=== PATIENT | male | born 1965 | race Two or more races ===

== ENCOUNTER → 2021-05-16 | Day surgery (SDC) | payer OTHER ==
[~2021-05-16] VITALS: Ht 182.9 cm; Wt 135.0 kg
[~2021-05-16] MED LIST: ATOR40TA59 PO; BUSP15TA PO; CARV12.511 PO; DICY20TA3 PO; FENO145T3 PO; FURO40TA4 PO; GABA300C18 PO; HYDR-2761 PO; IV RINGERS,LACTATED 1000ML 1,000 ML IV SCH; LIDOCAINE 2% PF 5 ML VIAL. ONE; LISI-130 PO; METH-561 PO; PROPOFOL 10 MG/ML (20ML) VIAL. IV ONE; TIZA4TAB2 PO
[2021-05-16 12:52] VITALS: BP 168/92
--- NOTE | 2021-05-16 13:02 | PDOC1 ---
History and Physical Date of Admission Date of Admission DATE: 05/16/21 TIME: 12:54 Identification/Chief Complaint Chief Complaint Abdominal pain. Source Source: Chart review, Patient History of Present Illness History of Present Illness 56 y/o male with roughly RUQ pain. Some nausea. Admits to heartburn, regurgitation and occasional dysphagia. Not on antisecretory. No PUD. S/p eloina for BD. No liver or pancreatic history. Variable stools w/o overt bleeding. Had normal colonoscopy age 39. [facility] positive for pancreatic cancer in father and colon cancer in >1 second-degree relatives. Past Medical History Cardiovascular: CHF, HTN, Hyperlipidemia Pulmonary: COPD, Other (sleep apnea) Endocrine: Diabetes Past Surgical History Past Surgical History: Cholecystectomy, Tonsillectomy Family History Family History Otherwise negative. Social History Smoke: No ALCOHOL: none Drugs: None Current Medications Current Medications Current Medications Ringer's Solution 1,000 ml @ 50 mls/hr Q20H IV ; Start 05/16/21 at 11:15; Stop 05/16/21 at 23:14 Propofol (Diprivan) 200 mg STK-MED ONCE IV ; Start 05/16/21 at 12:47; Stop 05/16/21 at 12:47; Status DC Lidocaine HCl (Lidocaine Pf 2% Vial) 5 ml STK-MED ONCE .ROUTE ; Start 05/16/21 at 12:47; Stop 05/16/21 at 12:47; Status DC Active Scripts Active Reported Buspirone Hcl 15 Mg Tablet 1 Tab PO BID Dicyclomine Hcl 20 Mg Tablet 1 Tab PO TID Carvedilol (Carvedilol) 12.5 Mg Tablet 12.5 Mg PO BIDWMEALS Furosemide 40 Mg Tablet 1 Tab PO DAILY Hydrocodone-Apap 5-325 (Hydrocodone Bit/Acetaminophen) 1 Tab Tablet 1 Tab PO PRN Q6HRS PRN Fenofibrate (Fenofibrate Nanocrystallized) 145 Mg Tablet 1 Tab PO DAILY Tizanidine Hcl 4 Mg Tablet 1 Tab PO DAILY Lisinopril 40 Mg Tablet 1 Tab PO DAILY Methocarbamol 500 Mg Tablet 500 Mg PO TID Atorvastatin Calcium 40 Mg Tablet 1 Tab PO DAILY Gabapentin (Gabapentin) 300 Mg Capsule 300 Mg PO TID Allergies Allergies: Coded Allergies: morphine (Verified Allergy, Unknown, 04/25/21) ROS Review of System Negative. Physical Exam General: Alert, Oriented X3, Cooperative, No acute distress Lungs: Clear to auscultation Heart: S1S2, RRR, no gallops, no murmurs Abdomen: Normal bowel sounds, Soft, No tenderness, No hepatosplenomegaly, No masses Rectal Exam: deferred (to procedure) Extremities: No cyanosis, No edema Skin: No significant lesion Neuro: Normal speech, Strength at 5/5 X4 ext, Normal tone, Sensation intact, Cranial nerves 3-12 NL, Reflexes 2+ Psych/Mental Status: Mental status NL, Mood NL Vitals Vitals Per nursing record. VTE Prophylaxis Ordered VTE Prophylaxis Devices: No VTE Pharmacological Prophylaxi: No Assessment/Plan Assessment/Plan IMP: Abdominal pain Screen for colon cancer. PLAN: colonoscopy/EGD. SHARATH RODRÍGUEZ MD May 16, 2021 13:02
--- NOTE | 2021-05-16 13:43 | PDOC4 ---
PROCEDURE Procedure Colonoscopy/EGD Indication: Abdominal pain/screen. Meds: per anesthesia Findings: E--Grade A esophagitis at 45cm. G--patchy prepyloric erythema, biopsied. D--normal to second portion. GREGORY normal. --'Scope advanced to cecum. Prep adequate for polyps >6mm. No diverticular disease noted. Mucosa normal. 3mm polyp in rectum, biopsied off. Small IH's on retroflex. Laurent. well. IMP: Mild GERD. non-specific antral erythema, biopsied. Rectal polyp. IH's. REC: Resume meds, diet as before. Await path. F/u with me in 2 weeks. SHARATH RODRÍGUEZ MD May 16, 2021 13:43
[2021-05-16 14:13] VITALS: BP 171/73
--- NOTE | 2021-05-17 15:08 | PATHOLOGY ---
[facility] Accession Number: [id number] . 01 Material submitted: . PART A: stomach - ANTRUM BIOPSY PART B: rectum - RECTAL POLYP BIOPSY . 01 Clinical history: . ABD PAIN/EPIG PAIN/ DIARRHEA EGD/COLON . 02 Diagnosis: A. Gastric biopsies, antrum: - Chronic gastritis, mild. . B. Colorectal biopsy, rectal polyp: - Hyperplastic polyp, showing mild chronic inflammation. (JPM:araceli; 05/17/2021) S 05/17/2021 0946 Local . 02 Comment: Sections of the gastric biopsy reveal segments of gastric antral/body transition mucosa showing congestion and mild chronic inflammation. A properly controlled immunoperoxidase stain for Helicobacter is negative for Helicobacter organisms. . Sections of the rectal biopsy reveal a hyperplastic polyp showing mild chronic inflammation. There are no adenomatous changes or evidence of malignancy. (JPM:araceli; 05/17/2021) . Special stain performed: Immunoperoxidase stain for Helicobacter on A1 . 02 Electronically signed: . Saad Nino MD, Pathologist NPI- [id number] . 01 Gross description: . A. The specimen is submitted in formalin, labeled "Ld, Ortiz, antrum biopsy". Received are 4 segments of pale laurent tissue ranging in size from 0.2 to 0.5 cm in maximum dimensions. The specimen is submitted in cassette A1. . B. The specimen is received in formalin, labeled "Ld, Ortiz, rectal polyp biopsy". Received is a single segment of pale laurent tissue measuring 0.4 cm in maximum dimensions. The specimen is submitted entirely in cassette B1. ([facility]; 05/16/2021) NRI/NRI 05/16/2021 1746 Local . 02 Pathologist provided ICD-10: K29.50, K62.1 . 02 CPT . 286930, 621379, [id number] Specimen Comment: A courtesy copy of this report has been sent to [phone], [phone] Specimen Comment: [id number] Specimen Comment: Report sent to / DR PELAYO Specimen Comment: A duplicate report has been generated due to demographic updates. Performed at: 01 [facility] [address], [place] [id number] MD Ashwin Clayton MD Phone: [phone] Performed at: 02 [facility] [address], [place] [id number] MD Saad Nino MD Phone: [phone]
== END | disposition home or self-care (01) ==
LOC: ENDOS 12:31
PROVIDERS: ATTEND Internal Medicine Gastroenterology
DX: R10.11 Right upper quadrant pain (principal); K29.50 Unspecified chronic gastritis without bleeding; K64.0 First degree hemorrhoids; K62.1 Rectal polyp; K21.00 Gastro-esophageal reflux disease with esophagitis, without bleeding; K31.89 Other diseases of stomach and duodenum; K63.89 Other specified diseases of intestine; I11.0 Hypertensive heart disease with heart failure; I50.9 Heart failure, unspecified; E78.00 Pure hypercholesterolemia, unspecified; J43.9 Emphysema, unspecified; E11.9 Type 2 diabetes mellitus without complications; F41.9 Anxiety disorder, unspecified; F32.9 Major depressive disorder, single episode, unspecified; Z90.49 Acquired absence of other specified parts of digestive tract; Z98.890 Other specified postprocedural states; Z79.899 Other long term (current) drug therapy; Z88.6 Allergy status to analgesic agent
CPT/HCPCS: 43239; 45380; 88305; 88342; J2704

== ENCOUNTER 2021-06-01 11:19 | Emergency (ER) | payer OTHER ==
[~2021-06-01] VITALS: Ht 182.9 cm; Wt 136.0 kg
[~2021-06-01 11:19] MED LIST changes: -IV RINGERS,LACTATED 1000ML 1,000 ML IV SCH; -LIDOCAINE 2% PF 5 ML VIAL. ONE; -PROPOFOL 10 MG/ML (20ML) VIAL. IV ONE
[2021-06-01 11:44] VITALS: BP 158/82
[2021-06-01] MEDS ORDERED: INSULIN REGULAR 100 UNIT/ML 3ML VIAL. SQ ONE (12:15)
[2021-06-01] MEDS ORDERED: MUPIROCIN 2 % TOPICAL CREAM 30GM TUBE. TP ONE (12:30)
[2021-06-01] MEDS ORDERED: LIDOCAINE 1% PF 2 ML VIAL. INJ ONE (12:30)
[2021-06-01] MEDS ORDERED: cefTRIAXone IM 1 GM VIAL IM ONE (12:30)
[2021-06-01] MEDS ORDERED: SULF-16 PO (13:02)
[2021-06-01] MEDS ORDERED: CEPH500T PO (13:02)
--- NOTE | 2021-06-01 13:03 | PHYS DOC ---
Past Medical History Past Medical History: Diabetes-Type II Additional Past Medical Histor: AKIKO, cardiomegaly (CHIDI FRANCISCO CUSTOMER ENGAGEMENT SPECIALIST) Past Surgical History: Cholecystectomy, Tonsillectomy (CHIDI FRANCISCO CUSTOMER ENGAGEMENT SPECIALIST) Smoking Status: Never Smoker Alcohol Use: None (CHIDI FRANCISCO APRN) General Adult EDM: Chief Complaint: ABSCESS HPI: HPI: Patient is a 56 year old male with history of diabetes type 2 among other illnesses who presents to the ED today complaining of an abscess on the left side of his neck as well as left foot redness, symptoms began this morning, patient states he has history of abscesses. Patient denies any fever. Patient states it has been "months" since he took antibiotics last. He states his blood sugars run in the 300s chronically and he is on insulin. (ELIZABETHVIDALCHIDI Ochoa CUSTOMER ENGAGEMENT SPECIALIST) Review of Systems: Review of Systems: Constitutional: Denies fever or chills. [] HENT: Denies nasal congestion or sore throat. [] Respiratory: Denies cough or shortness of breath. [] Cardiovascular: Denies chest pain or edema. [] GI: Denies abdominal pain, nausea, vomiting, bloody stools or diarrhea. [] : Denies dysuria. [] Musculoskeletal: Denies back pain or joint pain. [] Integument: Reports abscess to the left side of the neck and redness to the foot Neurologic: Denies headache, focal weakness or sensory changes. [] Psychiatric: Denies depression or anxiety. [] (CHIDI FRANCISCO CUSTOMER ENGAGEMENT SPECIALIST) Heart Score: C/O Chest Pain: N/A Risk Factors: Risk Factors: DM, Current or recent (<one month) smoker, HTN, HLP, family history of CAD, obesity. Risk Scores: Score 0 - 3: 2.5% MACE over next 6 weeks - Discharge Home Score 4 - 6: 20.3% MACE over next 6 weeks - Admit for Clinical Observation Score 7 - 10: 72.7% MACE over next 6 weeks - Early Invasive Strategies (CHIDI FRANCISCO CUSTOMER ENGAGEMENT SPECIALIST) Current Medications: Current Medications Medications (Trade) Dose Ordered Sig/Bari Start Time Stop Time Status Last Admin Dose Admin Ceftriaxone Sodium (Rocephin Im) 1 gm 1X ONCE 06/01/21 12:30 06/01/21 12:31 DC 06/01/21 12:22 1 GM Insulin Human Regular (HumuLIN R VIAL) 8 unit 1X ONCE 06/01/21 12:15 06/01/21 12:16 DC 06/01/21 12:24 8 UNIT Lidocaine HCl (Xylocaine-Mpf 1% 2ml Vial) 2 ml 1X ONCE 06/01/21 12:30 06/01/21 12:31 DC 06/01/21 12:23 2 ML Mupirocin (Bactroban) 1 cheyenne 1X ONCE 06/01/21 12:30 06/01/21 12:31 DC 06/01/21 12:22 1 [place] (CHIDI FRANCISCO M CUSTOMER ENGAGEMENT SPECIALIST) Allergies: Allergies: Allergies Coded Allergies Type Severity Reaction Last Updated Verified morphine Allergy Unknown 05/16/21 Yes (ELIZABETHUNGA,CHIDI M CUSTOMER ENGAGEMENT SPECIALIST) Physical Exam: PE: Constitutional: Well developed, well nourished, no acute distress, non-toxic appearance. [] HENT: Normocephalic, atraumatic, bilateral external ears normal, oropharynx moist, no oral exudates, nose normal. [] Eyes: PERRLA, EOMI, conjunctiva normal, no discharge. [] Neck: Normal range of motion, no tenderness, supple, no stridor. [] Cardiovascular:Heart rate regular rhythm, no murmur [] Lungs & Thorax: Bilateral breath sounds clear to auscultation [] Abdomen: Bowel sounds normal, soft, no tenderness, no masses, no pulsatile masses. [] Skin: Left lateral cervical spine with small indurated area roughly 0.5 x 0.5 cm with erythema, the area is firm with no fluctuance, there appears to be an early abscess formation less likely a lymph node. Left foot second toe and fourth toe with scabbed up regions with surrounding trace cellulitis. No drainage. Full range of motion to the left foot and toes. Negative Homans' sign to the left lower extremity. +2 left pedal pulse. Sensation intact to the left toes. Cap refill less than 2 seconds to left toes. Back: No tenderness, no CVA tenderness. [] Extremities: No tenderness, no cyanosis, no clubbing, ROM intact, no edema. [] Neurologic: Alert and oriented X 3, normal motor function, normal sensory function, no focal deficits noted. [] Psychologic: Affect normal, judgement normal, mood normal. [] (CHIDI FRANCISCO CUSTOMER ENGAGEMENT SPECIALIST) Current Patient Data: Labs: Laboratory Tests Test 06/01/21 11:42 Glucose (Fingerstick) 345 mg/dL (70-99) H Vital Signs: Vital Signs Date Time Temp Pulse Resp B/P (MAP) Pulse Ox O2 Delivery O2 Flow Rate FiO2 06/01/21 11:44 98.0 78 20 158/82 (105) 95 Room Air 98.0 (CHIDI FRANCISCO CUSTOMER ENGAGEMENT SPECIALIST) EKG: EKG: [] (CHIDI FRANCISCO CUSTOMER ENGAGEMENT SPECIALIST) Radiology/Procedures: Radiology/Procedures: [] (CHIDI FRANCISCO CUSTOMER ENGAGEMENT SPECIALIST) Course & Med Decision Making: Course & Med Decision Making Pertinent Labs and Imaging studies reviewed. (See chart for details) This a 56-year-old male patient presented to the ED today with an abscess on the left lateral cervical spine. This is a superficial abscess. Is still former nothing to drain today. The cellulitis on the left second and fourth toes. Patient was given Rocephin IM in the ED. Discharged on Bactrim and cephalexin. His blood sugar was 345. He has history of type 2 diabetes and his sugars run in the 300s. He received insulin in the ED. blood pressure was 158/82, patient states he has history of hypertension and did not take any of his blood pressure medicines this morning. He is requesting to take his own medicine when he gets home. Warm compresses recommended to the abscess regions. Importance of compliance with his diabetes as well as high blood pressure medicine discussed. He has a PCP. I also instructed him to follow-up with [facility] wound clinic. Tetanus is up-to-date (CHIDI FRANCISCO CUSTOMER ENGAGEMENT SPECIALIST) Course & Med Decision Making I have reviewed and was available for consultation in the emergency department for this patient that was seen by midlevel provider. Agree with plan. Joel Colon DO (JOEL COLON DO) Romario Disclaimer: Romario Disclaimer: This electronic medical record was generated, in whole or in part, using a voice recognition dictation system. (CHIDI FRANCISCO CUSTOMER ENGAGEMENT SPECIALIST) Departure Departure Impression: Primary Impression: Cellulitis of foot, left Additional Impression: Abscess of neck Disposition: 01 HOME / SELF CARE / HOMELESS Condition: STABLE Referrals: VICKIE PELAYO MD (PCP) follow up next week Patient Instructions: Abscess, Cellulitis Additional Instructions: You were evaluated in the emergency room for abscess and cellulitis. Take the prescribed antibiotics until completed. Please ensure you are taking your diabetes medicines. Please apply warm compresses to the abscess regions for 7 days. Scripts Cephalexin (CEPHALEXIN) 500 Mg Tablet 1 TAB PO BID, #20 TAB Prov: CHIDI FRANCISCO APRN 06/01/21 Sulfamethoxazole/Trimethoprim (SULFAMETHOXAZOLE-TMP SS TABLET) 1 Each Tablet 1 TAB PO BID for 10 Days, #20 TAB 0 Refills Prov: CHIDI FRANCISCO APRN 06/01/21 CHIDI FRANCISCO APRN Jun 01, 2021 13:02 JOEL COLON DO Jun 01, 2021 15:21
== END 2021-06-01 13:19 | disposition home or self-care (01) ==
LOC: ER 11:19
DX: L03.116 Cellulitis of left lower limb (principal); L02.11 Cutaneous abscess of neck; E11.9 Type 2 diabetes mellitus without complications; Z88.5 Allergy status to narcotic agent
CPT/HCPCS: 82962; 96372; 99284; J0696; J1815; J3490